=== PATIENT | female | born 1995 | race Caucasian/White ===

== ENCOUNTER 2024-07-13 09:04 | Emergency (ER) | payer SELFPAY ==
--- NOTE | 2024-07-13 09:50 | ERPHSYRPT ---
- History of Present Illness Time Seen by Provider: 07/13/24 09:07 Source: patient Exam Limitations: no limitations Physician History: 28 years old female with history of anxiety/depression with multiple psychiatric admissions last 1 was almost 3 months ago who recently moved to this area and has not established care here yet is out of her BuSpar and [facility]. Patient denies any suicidal or homicidal ideations. She wants refill. Patient denies any ideas of hopelessness/helplessness. Allergies/Adverse Reactions: escitalopram [From Lexapro] Allergy (Verified 07/13/24 09:46) lurasidone [From Latuda] Allergy (Verified 07/13/24 09:46) Home Medications: Valacyclovir HCl [Valacyclovir] 500 mg PO DAILY 07/13/24 [History] - Review of Systems Constitutional: No Symptoms Ears, Nose, & Throat: No Symptoms Respiratory: No Symptoms Cardiac: No Symptoms Abdominal/Gastrointestinal: No Symptoms Musculoskeletal: No Symptoms Skin: No Symptoms Neurological: No Symptoms Psychological: Depression Endocrine: No Symptoms Hematologic/Lymphatic: No Symptoms - Nursing Vital Signs Nursing Vital Signs: Initial Vital Signs Temperature 98.4 F 07/13/24 09:47 Pulse Rate 81 07/13/24 09:47 Blood Pressure 119/78 07/13/24 09:47 O2 Sat by Pulse Oximetry 97 07/13/24 09:47 Pain Scale Pain Intensity 0 - Physical Exam General Appearance: no apparent distress Eyes, Ears, Nose, Throat Exam: normal ENT inspection Neck Exam: normal inspection Respiratory Exam: normal breath sounds, lungs clear Cardiovascular Exam: regular rate/rhythm, normal heart sounds Extremities Exam: normal inspection, normal range of motion Current Suicidality: denies suicide plan Neurological Exam: alert, normal mood/affect, calm, bottle washer machine II-XII nml as tested, oriented x 3 Appearance: appropriate appearance, appropriate insight Behavior/Eye Contact/Speech: alert & cooperative, cooperative, good eye contact Thoughts/Hallucinations: normal thought pattern, no apparent hallucination Skin Exam: normal color SpO2 Interpretation: normal SpO2: 96 O2 Delivery: Room Air - Progress Progress: unchanged Progress Note: 07/13/24 09:48 28 years old with history of anxiety depression is evaluated in the ER for medication refill. Patient denies any suicidal or homicidal ideation, no worsening depressive symptoms. Patient recently moved here and has not established care yet. She is given 2 weeks worth of Prozac and BuSpar and recommended follow-up with primary care, list of primary care is given. Discussed with patient what signs symptoms of worsening or if having suicidal/ho micidal ideation return to ER which she seems understanding. Stable for discharge. Counseled pt/family regarding: diagnosis, need for follow-up Medical Desision Making - Diagnostic Testing Diagnostic test were ordered, analyzed, and reviewed by me: No - Risk of complications The pt has a mod risk of morbidity or mortality based on: Need for prescription drug management - Departure Departure Disposition: Home Clinical Impression: Depressive disorder Condition: Stable Critical Care Time: No Referrals: DOCTOR,NO FAMILY [Primary Care Provider] - Follow up/PCP as directed (For appointment for reevaluation) Prescriptions: Buspirone HCl 5 mg [Buspar 5 mg] 5 mg PO TID 14 Days #42 tablet Fluoxetine HCl [Prozac] 20 mg PO DAILY 14 Days #14 cap
[2024-07-13 09:52] VITALS: BP 119/78; PULSE 81; TEMP 98.4
[2024-07-13 16:45] VITALS: O2SAT 96
== END 2024-07-13 09:57 | disposition home or self-care (01) ==
LOC: ED 09:04
DX: F32.A Depression, unspecified (principal); Z79.899 Other long term (current) drug therapy
CPT/HCPCS: 99283

== ENCOUNTER 2024-08-13 21:49 | Emergency (ER) | payer MEDICAID ==
[2024-08-13 22:14] VITALS: RESP 16; TEMP 96.3
--- NOTE | 2024-08-13 22:44 | ERPHSYRPT ---
- History of Present Illness Time Seen by Provider: 08/13/24 22:38 Source: patient Exam Limitations: no limitations Patient Subjective Stated Complaint: pt states that she has been pooping blood with clots today Triage Nursing Assessment: pt ambulated into the er; pt is axo x4; c/o bloody stool; pt states 4/10 pain to abd; abd round, soft, tender; active bowel sounds in all quads; last bm 08/13/24; pt denies N/V/D; skin PDW; no respiratory distress present; vital wnl Physician History: pt states that she has been pooping blood with clots today Patient is 29-year-old female with significant past medical history of irritable bowel syndrome depression anxiety however 1 episode of pinkish-red blood in her stool. She denies any abdominal pain nausea vomiting diarrhea or constipation. Patient came to ER because of the concern that she has a pinkish-red blood for first time. She has a normal menstrual cycles. And patient patient says that this her back of her underwear is blood-tinged show she is pretty sure that it is coming from her rectum. She does not feel any popped out hemorrhoids or anything. Otherwise she denies any other symptoms. Timing/Duration: today Severity: mild Associated Symptoms: denies symptoms Allergies/Adverse Reactions: escitalopram [From Lexapro] Allergy (Verified 08/13/24 21:54) lurasidone [From Latuda] Allergy (Verified 08/13/24 21:54) Home Medications: Valacyclovir HCl [Valacyclovir] 500 mg PO DAILY 07/13/24 [History] Hx Tetanus, Diphtheria Vaccination/Date Given: Yes Hx Influenza Vaccination/Date Given: Yes Hx Pneumococcal Vaccination/Date Given: No Travel Risk - International Travel Have you traveled outside of the country in past 3 weeks: No - Emerging Infectious Disease Are you exhibiting symptoms associated with any current EIDs: No - Review of Systems Constitutional: No Fever, No Chills Eyes: No Symptoms Ears, Nose, & Throat: No Symptoms Respiratory: No Cough, No Dyspnea Cardiac: No Chest Pain, No Edema, No Syncope Abdominal/Gastrointestinal: Hematochezia, No Abdominal Pain, No Nausea, No Vomiting, No Diarrhea Genitourinary Symptoms: No Dysuria Musculoskeletal: No Back Pain, No Neck Pain Skin: No Rash Neurological: No Dizziness, No Focal Weakness, No Sensory Changes Psychological: No Symptoms Endocrine: No Symptoms All Other Systems: Reviewed and Negative - Past Medical History Pertinent Past Medical History: Yes Musculoskeletal History: Arthritis, Degenerative Disk Disease GI Medical History: Irritable Bowel Psycho-Social History: Depression Other Medical History: ptsd - Past Surgical History Past Surgical History: Yes - Female History Hx Last Menstrual Period: unknown Hx Now: No - Social History Smoking Status: Never smoker Exposure to second hand smoke: No Drug Use: none - Social Determinants of Health Will the patient participate in the screening: Yes Do you worry about a steady place to live?: No Do you have any problems with any of the following?: No known problems In the past 12 months,have you had to go without utilities?: No Transportation Issues: No Has anyone in your support network made you feel unsafe?: No Have you or anyone in your house had to go w/o enough food: No - Nursing Vital Signs Nursing Vital Signs: Initial Vital Signs Temperature 96.3 F 08/13/24 21:55 Pulse Rate 87 08/13/24 21:55 Respiratory Rate 16 08/13/24 21:55 Blood Pressure 126/73 08/13/24 21:55 O2 Sat by Pulse Oximetry 98 08/13/24 21:55 Pain Scale Pain Intensity 4 - Physical Exam General Appearance: no apparent distress, alert Eye Exam: PERRL/EOMI, eyes nml inspection Ears, Nose, Throat Exam: normal ENT inspection, TMs normal, pharynx normal, moist mucous membranes Neck Exam: normal inspection, non-tender, supple, full range of motion Respiratory Exam: normal breath sounds, lungs clear, No respiratory distress Cardiovascular Exam: regular rate/rhythm, normal heart sounds, normal peripheral pulses Gastrointestinal/Abdomen Exam: soft, normal bowel sounds, No tenderness, No mass Pelvic Exam: not done Rectal Exam: deferred Back Exam: normal inspection, normal range of motion, No CVA tenderness, No vertebral tenderness Extremity Exam: normal inspection, normal range of motion, pelvis stable Neurologic Exam: alert, oriented x 3, cooperative, normal mood/affect, nml cerebellar function, nml station & gait, sensation nml, No motor deficits Skin Exam: normal color, warm, dry, No rash Lymphatic Exam: No adenopathy SpO2: 98 - Course Nursing assessment & vital signs reviewed: Yes - Progress Progress: improved Counseled pt/family regarding: diagnosis, need for follow-up Medical Desision Making - Diagnostic Testing Diagnostic test were ordered, analyzed, and reviewed by me: No - Risk of complications Minimal Risk: Minimal risk of morbidity - Departure Departure Disposition: Home Clinical Impression: Blood present in stool Hemorrhoids Qualifiers: Hemorrhoid type: first degree Qualified Code(s): K64.0 - First degree hemorrhoids Condition: Stable Critical Care Time: No Referrals: DOCTOR,NO FAMILY [Primary Care Provider] - Follow up/PCP as directed Instructions: Hemorrhoids ED Additional Instructions: Use Preparation H outside the rectum area if you have a bleeding continues. Follow-up with her primary care doctor for further workup if problem continues. Discharge/Care Plan ALICE GARCIA was seen on 08/13/24 in the Emergency Room. The patient was counseled regarding Diagnosis,Lab results, Imaging studies, need for follow up and when to return to the Emergency Room. Prescriptions given: Discharge Note I have spoken with the patient and/or caregivers. I have explained the patient's condition, diagnosis and treatment plan based on the information available to me at this time. I have answered the patient's and/or caregiver's questions and addressed any concerns. The patient and/or caregivers have as good understanding of the patient's diagnosis, condition and treatment plan as can be expected at this point. The vital signs have been stable. The patient's condition is stable and appropriate for discharge from the emergency department. The patient will pursue further outpatient evaluation with the primary care physician or other designated or consulting physician as outlined in the discharge instructions. The patient and/or caregivers are agreeable to this plan of care and follow-up instructions have been explained in detail. The patient and/or caregivers have received these instruction. The patient/and or caregivers are aware that any significant change in condition or worsening of symptoms should prompt an immediate return to this or the closest emergency department or call 911. ALICE GARCIA was seen on 08/13/24 n the Emergency Room. At that time you were treated for an emergent condition, during your visit Laboratory, Radiology and/or other procedures may have been ordered. It is very important that you follow-up with your Primary Care Physician NO FAMILY DOCTOR within the next 24- 48 hours to review your Emergency Room visit and the final results of testing that was ordered. Some test results such as Urine Cultures, Blood Cultures, and other cultures if ordered will not be finalized for 24-48 hours. If you do not have a Primary Care Provider please call the medical records department at [phone] ext [phone] to obtain a copy of your results or you may sign into our patient portal to obtain these results by visiting us @ [email or web address] and completing the following steps: 1. Click on the Patient Portal link 2. Click the Patient Self Enrollment Link to complete the enrollment form and entering your 3. Once the enrollment form is completed you will receive an email with a temporary ID and password at the email address you provided. 4. Next choose a user name and password. Your user name must be at least 4 characters long and your password must be at least 4 characters long. 5. Choose a security question from the list and provide your answer to the question. If you already have signed into the Health Portal you may access your Health Care Information 01/12 by the following steps: 1. Login to our website @ [email or web address] 2. Enter your original user name and password. FAQS The [facility] Portal is an online tool that contains your Lab Results, Radiology Reports, Visit History, Discharge Instructions and Health Summary Lab and Radiology Results will not be available for 72 hours on the portal. The Portal is a secure site, passwords are encryted and URLs are re-written so they cannot be copied and pasted. You and authorized family members are the only ones who can access your Portal. Also there is a timeout feature that protects your information if you leave the Portal page open. If you have technical difficulty please use the Contact Us link on the page this will allow you to submit any questions you have regarding the Portal or you may contact the Medical Record Department at [phone] ext [phone].
[2024-08-13 23:02] VITALS: BP 126/58; PULSE 79; O2SAT 99
== END 2024-08-13 23:04 | disposition home or self-care (01) ==
LOC: ED 21:49
DX: K64.0 First degree hemorrhoids (principal); K92.1 Melena; Z79.899 Other long term (current) drug therapy
CPT/HCPCS: 99281

== ENCOUNTER 2025-03-23 23:08 | Emergency (ER) | payer OTHER ==
[2025-03-23 23:21] VITALS: RESP 18; TEMP 96.8
[2025-03-23] MEDS: Augmentin 875-125 Tablet PO ONE ×2 (23:24→23:25)
[2025-03-23] MEDS ORDERED: Augmentin 875-125 Tablet ONE (23:24)
--- NOTE | 2025-03-23 23:26 | ERPHSYRPT ---
- History of Present Illness Time Seen by Provider: 03/23/25 23:10 Source: patient Exam Limitations: no limitations Patient Subjective Stated Complaint: pt reports right ear pain, states she had an ear infection several weeks ago and did not finish her antibiotics due to f eeling better and a secondary yeast infection. Triage Nursing Assessment: pt is aox3, pupils perrl, afebrile, resps easy and non labored, cap refill < 3 seconds, radial pulses strong and equal, pt skin pink warm dry. pt with redness noted to the right middle ear. external ear canal WNL. Physician History: 29-year-old female presents to the emergency room right ear pain patient reports that about a day and a half ear pain she reports 3 weeks ago she had similar symptoms was on the left side she was prescribed amoxicillin she started a few days after the prescription so she started taking about 12 hours prior to arrival she reports she thinks her ear is infected denies any ear pain but reports pain inside the middle of her ear denies any recent swimming denies any recent immersion denies any fevers tolerating p.o. 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 Timing/Duration: gradual onset Severity: mild ENT Location: ear (R) Prearrival Treatment: prescription meds Associated Symptoms: ear pain (R) Allergies/Adverse Reactions: latex Allergy (Mild, Verified 03/23/25 23:10) Rash escitalopram [From Lexapro] Allergy (Verified 03/23/25 23:10) lurasidone [From Latuda] Allergy (Verified 03/23/25 23:10) Home Medications: Valacyclovir HCl [Valacyclovir] 1 gm PO DAILY 07/13/24 [History] PANTOPRAZOLE 40 mg Tablet [Protonix 40MG Tablet] 40 mg PO DAILY 10/19/24 [History] Hx Tetanus, Diphtheria Vaccination/Date Given: Yes Hx Influenza Vaccination/Date Given: No Hx Pneumococcal Vaccination/Date Given: No Immunizations Up to Date: Yes Travel Risk - International Travel Have you traveled outside of the country in past 3 weeks: No - Emerging Infectious Disease Are you exhibiting symptoms associated with any current EIDs: No - Review of Systems Constitutional: No Fever, No Chills Eyes: No Symptoms Ears, Nose, & Throat: Ear Pain Respiratory: No Cough, No Dyspnea Cardiac: No Chest Pain, No Edema, No Syncope Abdominal/Gastrointestinal: No Abdominal Pain, No Nausea, No Vomiting, No Diarrhea Genitourinary Symptoms: No Dysuria Musculoskeletal: No Back Pain, No Neck Pain Skin: No Rash Neurological: No Dizziness, No Focal Weakness, No Sensory Changes Psychological: No Symptoms Endocrine: No Symptoms All Other Systems: Reviewed and Negative - Past Medical History Pertinent Past Medical History: Yes Neurological History: No Pertinent History ENT History: No Pertinent History Cardiac History: No Pertinent History Respiratory History: No Pertinent History Endocrine Medical History: No Pertinent History Musculoskeletal History: Arthritis, Degenerative Disk Disease GI Medical History: No Pertinent History History: No Pertinent History Psycho-Social History: Depression Female Reproductive Disorders: No Pertinent History Other Medical History: ptsd, eoe - Past Surgical History Past Surgical History: Yes Neuro Surgical History: No Pertinent History Cardiac: No Pertinent History Respiratory: No Pertinent History Gastrointestinal: No Pertinent History Genitourinary: Other Musculoskeletal: No Pertinent History Female Surgical History: No Pertinent History Other Surgical History: esophageal surgery - Female History Hx Last Menstrual Period: 2023 Hx Now: No - Social History Smoking Status: Never smoker Exposure to second hand smoke: No Drug Use: none - Social Determinants of Health Will the patient participate in the screening: Yes Do you worry about a steady place to live?: No Do you have any problems with any of the following?: No known problems In the past 12 months,have you had to go without utilities?: No Transportation Issues: No Has anyone in your support network made you feel unsafe?: No Have you or anyone in your house had to go w/o enough food: No - Nursing Vital Signs Nursing Vital Signs: Initial Vital Signs Temperature 96.8 F 03/23/25 23:10 Pulse Rate 74 03/23/25 23:10 Respiratory Rate 18 03/23/25 23:10 Blood Pressure 152/96 03/23/25 23:10 O2 Sat by Pulse Oximetry 100 03/23/25 23:10 Pain Scale Pain Intensity 6 - Physical Exam General Appearance: no apparent distress, alert Eye Exam: bilateral eye: PERRL, EOMI Ear Exam: right ear: TM red, left ear: TM normal Nasal Exam: normal inspection Throat Exam: pharynx normal, moist mucus membranes, No tonsillar exudate Neck Exam: supple Cardiovascular/Respiratory Exam: normal breath sounds, regular rate/rhythm Abdominal Exam: non-tender, soft Neurologic Exam: alert, oriented x 3, sensation nml, No motor deficits Skin Exam: normal color, warm, dry SpO2: 100 Ordered Tests: Medication Summary Discontinued Medications Generic Name Dose Route Start Last Admin Trade Name Liam PRN Reason Stop Dose Admin Amoxicillin/Clavulanate Potassium 875 mg 03/23/25 23:22 03/23/25 23:24 Amox Tr/Potassium Clavulanate 875 Mg Tablet PO 03/23/25 23:23 875 mg STAT ONE Administration Amoxicillin/Clavulanate Potassium 875 mg 03/23/25 23:23 03/23/25 23:25 Amox Tr/Potassium Clavulanate 875 Mg Tablet PO 03/23/25 23:24 875 mg STAT ONE Administration Amoxicillin/Clavulanate Potassium Confirm 03/23/25 23:24 Amox Tr/Potassium Clavulanate 875 Mg Tablet Administered 03/23/25 23:25 Dose 1,750 mg .ROUTE .STK-MED ONE - Progress Progress Note: 03/23/25 23:25 Patient was recently on amoxicillin patient be started on Augmentin given first dose in the ED patient prescribed Augmentin for home and recommended she follow- up with a ENT specialist - Departure Departure Disposition: Home Clinical Impression: Otitis media Qualifiers: Otitis media type: unspecified Chronicity: acute Qualified Code(s): H66.90 - Otitis media, unspecified, unspecified ear Condition: Stable Critical Care Time: No Referrals: YOHANA RAMEY FI[employer] EDUCATION DIRECTOR [Primary Care Provider, UNKNOWN] - Follow up/PCP as directed Instructions: Ear Infections in Children (DC) Prescriptions: Amox Tr/Potass Clav. 875 mg [Augmentin 875-125 Tablet] 875 mg PO BID #14 tablet Fluconazole [Diflucan ] 150 mg PO DAILY 1 Days #1 tablet
[2025-03-23 23:46] VITALS: BP 114/90; PULSE 79
[2025-03-23 23:47] VITALS: O2SAT 100
== END 2025-03-23 23:45 | disposition home or self-care (01) ==
LOC: ED 23:08
DX: H66.91 Otitis media, unspecified, right ear (principal); H92.01 Otalgia, right ear; Z79.899 Other long term (current) drug therapy